=== PATIENT | male | born 1955 | race Caucasian/White ===

== ENCOUNTER 2018-01-17 01:16 | Day surgery (SDC) | payer OTHER ==
[~2018-01-17] VITALS: Ht 198.1 cm; Wt 125.2 kg
[~2018-01-17 01:16] MED LIST: CIM300 PO; EZE10 PO; FAM20 PO; LEV100 PO; LOR10 PO; SILD20TA PO; SIMV-49 PO; VARD5TAB5 PO
[2018-01-17] MEDS ORDERED: LIDOCAINE/SOD BICARB 8.4% SYR ID ONE (07:20)
[2018-01-17] MEDS ORDERED: NORMOSOL R SOLN(*) 1000 ML BAG 1,000 ML IV PRN (07:20)
[2018-01-17 07:42] VITALS: BP 156/94
[2018-01-17] MEDS ORDERED: LIDOCAINE MPF 1% 5 ML VIAL ONE (08:04)
[2018-01-17] MEDS ORDERED: PROPOFOL EMUL(*) 10MG/ML 20 ML 40 ML ONE (08:04)
[2018-01-17 08:28] VITALS: BP 101/74
[2018-01-17 08:30] VITALS: BP 96/73
[2018-01-17 08:45] VITALS: BP 115/84
[2018-01-17 09:07] VITALS: BP 132/96
[2018-01-17 09:08] VITALS: BP 123/85
== END 2018-01-17 10:15 | disposition home or self-care (01) ==
LOC: OR 01:16
PROVIDERS: ATTEND Family Medicine
DX: Z12.11 Encounter for screening for malignant neoplasm of colon (principal); E78.5 Hyperlipidemia, unspecified; E03.9 Hypothyroidism, unspecified; Z88.8 Allergy status to other drugs, medicaments and biological substances
CPT/HCPCS: 00812; 45378; J2001; J2704

== ENCOUNTER 2018-04-26 08:00 | Outpatient (RCR) | payer OTHER ==
[2018-04-05 08:15] VITALS: BP 144/79
--- NOTE | 2018-04-05 11:19 | ONCOLOGY CONSULTATION ---
EVENT DATE: April 05, 2018 REFERRING PHYSICIAN Christopher Porras MD REASON FOR CONSULTATION Evaluation and management of right pulmonary embolus, idiopathic. HEMATOLOGY HISTORY Patient is a 63-year-old male who had a history of pulmonary embolism in his mother, who presented to the emergency room at [facility] in [place], [place], recently with right anterior chest pain radiating to the right axilla and right neck. Patient had a CTA chest done on March 18, 2018, which showed pulmonary embolism in subsegmental branches of the right lower lobe pulmonary artery with mild right heart strain. Patient started treatment with Xarelto. There was no evidence of DVT clinically at that time so the test was not done. His PE is considered idiopathic. PAST MEDICAL HISTORY 1. Hypothyroidism. 2. Hypercholesterolemia. PAST SURGICAL HISTORY 1. Surgery for pectus excavatum. 2. Hernia repair x2. 3. Tonsillectomy. FAMILY HISTORY Mother had severe pulmonary embolus. SOCIAL HISTORY Patient is with two children. 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 He denies any abuse of tobacco or illicit drugs. He rarely drinks beer. CURRENT MEDICATIONS 1. Xarelto 15 mg twice daily for three weeks and then 20 mg once daily. He will start once daily Xarelto at 20 mg on April 08, 2018. 2. Sildenafil 20 mg as needed. 3. Simvastatin 20 mg daily. 4. Levothyroxine 100 mcg once daily. 5. Vitamin D3 125 mcg (5000 international units once daily). 6. Claritin OTC during summer months. 7. Nasonex or Flonase in summer months as needed. ALLERGIES EZETIMIBE, which causes muscle aches, and BAND-AID, which causes itching of the skin. REVIEW OF SYSTEMS CONSTITUTIONAL: No appetite or weight change. No fever, chills or sweating. No recent infection. HEENT: Ears: He has nasal discharge from allergy. Nose: No nasal discharge or epistaxis. Throat: No sore throat or mouth ulcers. Eyes: No diplopia or visual changes. RESPIRATORY: No shortness of breath. No cough, expectoration or hemoptysis. CARDIOVASCULAR: No chest pain, orthopnea, or paroxysmal nocturnal dyspnea (PND). No edema. No palpitations. GASTROINTESTINAL: No nausea or vomiting. No diarrhea or constipation. No change in bowel movements. No heartburn or swallowing difficulties. No abdominal pain. No jaundice. No hematemesis, melena or rectal bleeding. GENITOURINARY: Patient has had heavy periods for years, and she has been seen by a instrument mechanics supervisor, and she was offered uterine ablation, but the patient refused the procedure. As per patient, she has had heavy periods for a total of seven days every month. MUSCULOSKELETAL: He had fall recently with pain on the right butt cheek. NEUROLOGICAL: He has sinus headache occasionally. HEMATOLOGIC/LYMPHATIC: He has occasional fatigue. SKIN: No skin rash or lumps. PSYCHIATRIC: No anxiety or depression. PHYSICAL EXAMINATION GENERAL: Looks stable. Well-developed, well-nourished, and in no acute distress. VITAL SIGNS: Blood pressure 144/79, pulse 70 per minute, respirations 16 per minute, temperature 96.6, pulse ox 93% on room air. HEENT: Head: Atraumatic. No sinus tenderness to palpation. Eyes: No icterus or conjunctivitis. Mouth and Throat: No oral thrush or mucositis. NECK: Supple. No cervical or supraclavicular lymphadenopathy. LUNGS: Clear to auscultation and percussion bilaterally. HEART: Regular rate and rhythm. No gallops, murmurs, clicks or rubs. ABDOMEN: Soft and lax. No tenderness. No hepatosplenomegaly. No masses. EXTREMITIES: No cyanosis, clubbing or edema. LYMPHATICS: No peripheral lymphadenopathy. NEUROLOGICAL: Conscious, alert and oriented x3. No focal motor or sensory deficits. PSYCHIATRIC: Mood and affect appear normal. SKIN: No skin rash, bruise or purpuric eruption. ASSESSMENT 1. Idiopathic right pulmonary embolism involving subsegmental branches of the right lower lobe pulmonary artery with mild right heart strain diagnosed by CTA chest done on March 18, 2018. Patient is currently on Xarelto therapy. This is his first episode of venous thromboembolism. I am planning to continue Xarelto for a total of one year. Given that the patient has a positive family history in his mother with severe pulmonary embolism in the past, I am planning to do a thrombophilia workup. I am planning to see him in two weeks from now to discuss the results of the thrombophilia workup and what will be the plan for the rest of his family. I explained that to the patient and he is agreeable with the plan of management. 2. Hypothyroidism, on supplement. 3. Hypercholesterolemia, on treatment. PLAN 1. Thrombophilia workup. 2. Continue Xarelto for a total of one year. 3. Patient to return in two weeks for further evaluation and management. 4. Patient to contact us for any new concerns or complaints. PIPPA
[2018-04-09 10:36] VITALS: BP 142/85
[2018-04-09 10:39] LABS: PLATELET COUNT, AUTOMATED 213 K/uL (150-450)
--- NOTE | 2018-04-09 16:58 | ONCOLOGY FOLLOW UP NOTE ---
EVENT DATE: April 09, 2018 CHIEF COMPLAINT Followup for pulmonary embolism. HISTORY OF PRESENT ILLNESS Patient is a 63-year-old male who was diagnosed with an idiopathic pulmonary embolism on 03/18/18. He was started on Xarelto at that time and is currently on 20 mg daily. He presents today with a three- to four-day history of mild hematuria. This started last Sunday, but this morning he woke up and states the urine was very rust colored. He has also complaints of some mild dysuria, but no significant increased frequency. HEMATOLOGY HISTORY Presented with right anterior chest pain radiating to the right axilla and right neck. CTA of the chest on 03/18/18 showed a pulmonary embolism of the subsegmental branches of the right lower pulmonary artery with mild right heart strain. Began treatment with Xarelto on 03/18/18. MEDICAL HISTORY 1. Pulmonary embolism, February 2018. 2. Hypothyroidism. 3. Hyperlipidemia. SURGICAL HISTORY 1. Surgery for pectus excavatum. 2. Hernia repair times two. 3. Tonsillectomy. FAMILY HISTORY Mother had several pulmonary emboli. SOCIAL HISTORY Patient is . They have two grown children. 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 He denies any use of tobacco or illicit drugs. He rarely drinks beer. MEDICATIONS 1. Xarelto 20 mg daily. 2. Sildenafil 20 mg p.r.n. 3. Simvastatin 20 mg daily. 4. Levothyroxine 100 mcg daily. 5. Vitamin D3 5000 International Units daily. 6. Claritin OTC. 7. Nasonex p.r.n. ALLERGIES EZETIMIBE which causes muscle aches. BAND-AIDS cause itching of the skin. REVIEW OF SYSTEMS A 12-point review of systems is performed and is negative except as stated above. PHYSICAL EXAMINATION VITAL SIGNS: Weight 134.3 kg. BP 142/85, P 68, R 16, temp 97.1, O2 sat 93%. GENERAL: Patient is a well-developed, well-nourished male in no acute distress. HEAD: Atraumatic, normocephalic. EYES: Sclerae anicteric. MOUTH: Moist mucous membranes. NECK: Supple. No palpable adenopathy. LUNGS: Clear bilaterally. CARDIOVASCULAR: Heart rate regular, 68 per minute, without murmur, S3, or S4. EXTREMITIES: No edema. NEUROLOGIC: Nonfocal. SKIN: No bruising. LABORATORIES CBC today shows WBC of 6.3, hemoglobin 16.5, hematocrit 47.5, platelets 213,000. Urine shows no evidence of infection, but large blood is noted. IMPRESSION AND PLAN The patient is a 63-year-old male who presented with an idiopathic pulmonary embolism on 03/18/18. Began treatment with Xarelto at that time. 1. Pulmonary embolism. Patient is on Xarelto 20 mg daily. However, as he has developed hematuria, will hold Xarelto today. He is instructed to present to the clinic tomorrow for further review of symptoms. 2. Patient will be scheduled for a hypercoagulable workup including prothrombin gene mutation, lupus anticoagulant, MTHFR, protein C and protein S, antithrombin III, anticardiolipin antibody, factor V Leiden, homocysteine level, and beta-2 microglobulin. This should be done within the next few days pending insurance coverage. His family history is significant for several PEs. This workup will help determine the length of treatment for the patient as well as implications for his children. 3. Follow up with Dr. Reynoso on 04/19/18 pending results from hypercoagulable workup. As above, further decisions regarding treatment will be made based on his report tomorrow. PIPPA
[2018-04-16 08:07] VITALS: BP 131/84
[~2018-04-26 08:00] MED LIST changes: +ASPI81TA94 PO; +CHOL10005 PO; +MOMR ENA; +RIVA15TA PO; +RIVA20TA PO
[2018-04-26 08:05] VITALS: BP 126/76
--- NOTE | 2018-04-26 09:32 | [facility]-TAR[facility] ONCOLOGY NOTE ---
EVENT DATE: April 26, 2018 DIAGNOSIS Idiopathic right pulmonary embolus involving subsegmental branches of the right lower lobe pulmonary artery with mid right heart strain. CHIEF COMPLAINT Patient is here today for followup of his idiopathic pulmonary embolus. HEMATOLOGY HISTORY Patient is a 63-year-old male who had a history of pulmonary embolism in his mother, who presented to the emergency room at [facility] in [place], [place], recently with right anterior chest pain radiating to the right axilla and right neck. Patient had a CTA chest done on March 18, 2018, which showed pulmonary embolism in subsegmental branches of the right lower lobe pulmonary artery with mild right heart strain. Patient started treatment with Xarelto. There was no evidence of DVT clinically at that time so the test was not done. His PE is considered idiopathic. Full workup for thrombophilia was done and came back negative. HISTORY OF PRESENT ILLNESS Patient is here today for followup of his idiopathic right pulmonary embolus. He is doing fine currently. He has some nasal discharge. He has some cough and shortness of breath. He has achy joints sometimes but other than that he is really doing very well currently. PAST MEDICAL HISTORY 1. Hypothyroidism. 2. Hypercholesterolemia. PAST SURGICAL HISTORY 1. Surgery for pectus excavatum. 2. Hernia repair x2. 3. Tonsillectomy. FAMILY HISTORY Mother had severe pulmonary embolus. SOCIAL HISTORY Patient is with two children. 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 He denies any abuse of tobacco or illicit drugs. He rarely drinks beer. CURRENT MEDICATIONS 1. Xarelto 15 mg twice daily for three weeks and then 20 mg once daily. He will start once daily Xarelto at 20 mg on April 08, 2018. 2. Sildenafil 20 mg as needed. 3. Simvastatin 20 mg daily. 4. Levothyroxine 100 mcg once daily. 5. Vitamin D3 125 mcg (5000 international units once daily). 6. Claritin OTC during summer months. 7. Nasonex or Flonase in summer months as needed. ALLERGIES EZETIMIBE, which causes muscle aches, and BAND-AID, which causes itching of the skin. REVIEW OF SYSTEMS CONSTITUTIONAL: No appetite or weight change. No fever, chills or sweating. No recent infection. HEENT: Ears: He has nasal discharge from allergy. Nose: He has nasal discharge. Throat: No sore throat or mouth ulcers. Eyes: No diplopia or visual changes. RESPIRATORY: He has cough and shortness of breath. CARDIOVASCULAR: No chest pain, orthopnea, or paroxysmal nocturnal dyspnea (PND). No edema. No palpitations. GASTROINTESTINAL: No nausea or vomiting. No diarrhea or constipation. No change in bowel movements. No heartburn or swallowing difficulties. No abdominal pain. No jaundice. No hematemesis, melena or rectal bleeding. GENITOURINARY: Patient has had heavy periods for years, and she has been seen by a manager product management, and she was offered uterine ablation, but the patient refused the procedure. As per patient, she has had heavy periods for a total of seven days every month. MUSCULOSKELETAL: He has achy joints sometimes. NEUROLOGICAL: He has sinus headache occasionally. HEMATOLOGIC/LYMPHATIC: He has occasional fatigue. SKIN: No skin rash or lumps. PSYCHIATRIC: No anxiety or depression. PHYSICAL EXAMINATION GENERAL: Looks stable. Well-developed, well-nourished, and in no acute distress. VITAL SIGNS: Blood pressure 126/76, pulse 68 per minute, respirations 16 per minute, temperature 97.1, pulse ox 93% on room air. HEENT: Head: Atraumatic. No sinus tenderness to palpation. Eyes: No icterus or conjunctivitis. Mouth and Throat: No oral thrush or mucositis. NECK: Supple. No cervical or supraclavicular lymphadenopathy. LUNGS: Clear to auscultation and percussion bilaterally. HEART: Regular rate and rhythm. No gallops, murmurs, clicks or rubs. ABDOMEN: Soft and lax. No tenderness. No hepatosplenomegaly. No masses. EXTREMITIES: No cyanosis, clubbing or edema. LYMPHATICS: No peripheral lymphadenopathy. NEUROLOGICAL: Conscious, alert and oriented x3. No focal motor or sensory deficits. PSYCHIATRIC: Mood and affect appear normal. SKIN: No skin rash, bruise or purpuric eruption. DIAGNOSTIC DATA Complete thrombophilia workup was done and came back negative for underlying thrombophilic disease. ASSESSMENT 1. Idiopathic right pulmonary embolism involving subsegmental branches of the right lower lobe pulmonary artery with mild right heart strain diagnosed by CTA chest done on March 18, 2018. Patient is currently on Xarelto. This is his first episode of venous thromboembolism, which was idiopathic. I am planning to continue Xarelto for a total of one year. Patient had a positive family history in his mother with severe pulmonary embolism in the past and for this reason a thrombophilia workup was done fully and came back negative for underlying thrombophilic disease. I am planning to see the patient by the end of the year in February 2019, prior to he will stop Xarelto, and I gave him some precautions regarding lifestyle modification with anticoagulation. The patient understands the risks of anticoagulation. He is also agreeable with the plan of management. 2. Hypothyroidism, on supplement. 3. Hypercholesterolemia, on treatment. PLAN 1. Continue Xarelto for a total of one year. 2. Patient to return in February 2019 for followup or earlier if he would develop any other blood clot or bleeding. 3. Patient to contact us for any new concerns or complaints. PIPPA
== END 2018-04-29 13:44 | disposition home or self-care (01) ==
LOC: ONC 08:00
PROVIDERS: ATTEND Internal Medicine Hematology
DX: I26.99 Other pulmonary embolism without acute cor pulmonale (principal); Z79.01 Long term (current) use of anticoagulants; E03.9 Hypothyroidism, unspecified; E78.00 Pure hypercholesterolemia, unspecified; R31.9 Hematuria, unspecified
CPT/HCPCS: 36415; 81001; 81240; 81241; 81291; 83090; 85025; 85300; 85302; 85303; 85305; 85306; 85597; 85610; 85613; 85670; 85730; 85732; 86146; 86147; 99202; 99212

== ENCOUNTER 2018-05-02 12:59 | Outpatient (RCR) | payer OTHER ==
[2018-05-02 14:30] VITALS: BP 128/80
--- NOTE | 2018-05-02 16:06 | RADIOLOGY IMAGING REPORT ---
FAC[place] [facility] [place] NAME: Baljit Allen : 1955 MR: [id number] V: [id number] EXAM DATE: ORDERING PHYSICIAN: ARISTEO GONZALES TECHNOLOGIST: Location: [facility] Patient: Baljit Allen : 1955 Visit/Account:[id number] Date of Sevice: 05/02/2018 VENOUS DOPP LOW LEFT EXTREMITY HISTORY: Left leg pain ADDITIONAL HISTORY: None. COMPARISON: None. FINDINGS: The left common femoral, femoral, and popliteal veins are fully compressible and patent. The paired veins of the calf are normal. There is a optimal fossa Banda's cyst, 2.0 x 1.6 x 0.9 cm. IMPRESSION: 1. No evidence of left lower extremity DVT. 2. Left popliteal fossa Banda's cyst, 2.0 cm. Report Dictated By: Moe Whipple at 05/02/2018 3:59 PM Report E-Signed By: Moe Whipple at 05/02/2018 4:01 PM WSN:[id number]
--- NOTE | 2018-05-03 18:15 | ONCOLOGY FOLLOW UP NOTE ---
EVENT DATE: May 02, 2018 CHIEF COMPLAINT Followup for pulmonary embolism and discomfort in left lower extremity. HISTORY OF PRESENT ILLNESS Patient is a 63-year-old male who was seen today as a work-in. He continues on Xarelto for an idiopathic pulmonary embolism developed on 03/18/18. He is tolerating this well. He presents today and notes discomfort in his left lower extremity and was concerned that he may have a DVT. Previously, he slipped on some ice and may have "wrenched" his knee, but was concerned about the possibility of another embolism. He otherwise is doing well. He has had no issues with bleeding or bruising. HEMATOLOGY HISTORY Presented with right anterior chest pain radiating to the right axilla and right neck. CTA of the chest on 03/18/18 showed a pulmonary embolism of the subsegmental branches of the right lower pulmonary artery with mild right heart strain. Began treatment with Xarelto on 03/18/18. Workup for thrombophilia was negative. MEDICAL HISTORY 1. Pulmonary embolism, February 2018. 2. Hypothyroidism. 3. Hyperlipidemia. SURGICAL HISTORY 1. Surgery for pectus excavatum. 2. Hernia repair x2. 3. Tonsillectomy. FAMILY HISTORY Mother had several pulmonary emboli. SOCIAL HISTORY Patient is . They have two grown children. 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 He denies any use of tobacco or illicit drugs. He rarely drinks beer. MEDICATIONS 1. Xarelto 20 mg daily. 2. Sildenafil 20 mg p.r.n. 3. Simvastatin 20 mg daily. 4. Levothyroxine 100 mcg daily. 5. Vitamin D3 5000 International Units daily. 6. Claritin OTC. 7. Nasonex p.r.n. ALLERGIES EZETIMIBE which causes muscle aches. BAND-AIDS cause itching of the skin. REVIEW OF SYSTEMS A 12-point review of systems is performed and is negative except as stated above. PHYSICAL EXAMINATION VITAL SIGNS: Weight 291.2 pounds. BP 128/80, P 61, R 16, temp 97.1, O2 sat 88%. GENERAL: Patient is a well-developed, well-nourished male in no acute distress. HEAD: Atraumatic, normocephalic. EYES: Sclerae anicteric. MOUTH: Moist mucous membranes. NECK: Supple. No palpable adenopathy. LUNGS: Clear bilaterally. CARDIOVASCULAR: Heart rate regular, 61 per minute, without murmur, S3, or S4. EXTREMITIES: Trace to 1+ pretibial edema bilaterally, left greater than right. No erythema noted in the left lower extremity. NEUROLOGIC: Nonfocal. LABORATORIES No lab. IMPRESSION The patient is a 63-year-old male who presented with an idiopathic pulmonary embolism on 03/18/18. Began treatment with Xarelto at that time. Hypercoagulable workup negative. PLAN 1. Pulmonary embolism. Hypercoagulable workup was negative. He continues on Xarelto for a total of one year. He is tolerating this well. 2. ? left lower extremity DVT. Presents with some mild swelling and discomfort in his left lower extremity. He is concerned about DVT. Ultrasound on 05/02/18 showed no evidence of left lower extremity DVT. There was a left popliteal fossa Banda cyst, approximately 2 cm. He is reassured by this. 3. Follow up in February 2019 for continued care, earlier if there is a problem. PIPPA
== END 2018-05-22 07:14 | disposition home or self-care (01) ==
LOC: ONC 12:59
PROVIDERS: ATTEND Internal Medicine Hematology
DX: I26.99 Other pulmonary embolism without acute cor pulmonale (principal); Z79.01 Long term (current) use of anticoagulants; E03.9 Hypothyroidism, unspecified; E78.5 Hyperlipidemia, unspecified; M71.22 Synovial cyst of popliteal space [Baker], left knee
CPT/HCPCS: 99212